=== PATIENT | female | born 1985 | race American Indian/Alaskan Native ===

== ENCOUNTER 2024-10-13 01:46 | Inpatient (IN) | payer OTHER ==
[~2024-10-13] VITALS: Ht 160 cm
[~2024-10-13 01:46] MED LIST: PRENATAL TABLE1 EAC1 PO
[2024-10-13] MEDS ORDERED: ALBUTEROL/IPRATROPIUM 3 ML NEB ONE (01:50)
[2024-10-13] MEDS ORDERED: methylPREDNISolone SOD SUCC 125 MG/2 ML VIAL IV ONE (02:00)
[2024-10-13] MEDS ORDERED: ALBUTEROL/IPRATROPIUM 3 ML NEB INH ONE (02:00)
[2024-10-13 02:03] LABS: PH, VENOUS 7.445 (7.31-7.41)
[2024-10-13 02:05] LABS: RDW 14.6 (10.5-15.0)
[2024-10-13] MEDS ORDERED: VENTOLIN HFA18 GM INH (02:05)
[2024-10-13 02:08] LABS: HEMATOCRIT 39.9 % (35.0-50.0); HEMOGLOBIN 13.1 g/dL (12.0-18.0); MCHC 32.9 g/dl (30-36); PLATELET COUNT 523 K/uL (140-440); RBC 5.05 M/ul (4.3-5.7)
[2024-10-13] MEDS ORDERED: CEFTRIAXONE/SODIUM CHLORIDE 2 GM/100 ML PIGGYBACK IV ONE (02:15)
[2024-10-13 02:28] LABS: EOSINOPHILS, MANUAL DIFF 2; LYMPHOCYTES, MANUAL DIFF 24; MONOCYTES, MANUAL DIFF 6; NEUTROPHILS, MANUAL DIFF 68
[2024-10-13 02:30] LABS: ALBUMIN 2.3 g/dL (3.4-5.0); ALBUMIN/GLOBULIN RATIO 0.37 (1.1-2.4); ANION GAP 12.5 (7-21); BILIRUBIN, TOTAL 0.2 ng/dL (0.2-1.0); BUN/CREATININE RATIO 7.5 (6.0-28.6); CALCIUM 8.7 mg/dL (8.5-10.1); CREATININE, SERUM 0.8 mg/dL (0.55-1.02); POTASSIUM 3.5 mmol/L (3.5-5.1); PROTEIN, TOTAL 8.5 g/dL (6.4-8.2)
[2024-10-13] MEDS ORDERED: ALBUTEROL SULFATE 0.5% 2.5 MG/0.5 ML VIAL INH ONE (02:30)
[2024-10-13] MEDS ORDERED: MAGNESIUM SULFATE 2 GM/50 ML BAG IV ONE (02:30)
[2024-10-13 02:42] LABS: INFLUENZA B NAA NEGATIVE (NEGATIVE); RESPIRATORY SYNCYTIAL VIR NAA NEGATIVE (NEGATIVE)
[2024-10-13 02:52] LABS: LACTIC ACID, BLOOD 0.7 mmol/L (0.4-2.0)
[2024-10-13] MEDS ORDERED: LACTATED RINGER'S 1,000 ML IV ONE (03:45)
[2024-10-13] MEDS ORDERED: AZITHROMYCIN 250 MG TAB PO ONE (03:45)
[2024-10-13 04:03] LABS: BILIRUBIN, URINE NEGATIVE (negative); BLOOD/HGB, URINE NEGATIVE (Negative); KETONE, URINE NEGATIVE (Negative); LEUK ESTERASE, URINE SMALL (negative); NITRITE, URINE NEGATIVE (negative); PH, URINE 6.5 (5-7)
[2024-10-13 04:13] LABS: BACTERIA, URINE 1+ /hpf (negative); CRYSTALS, URINE NONE SEEN (0-1+); EPITHELIAL CELLS, URINE SQUAMOUS 2+ /lpf (0-1+)
[2024-10-13 04:14] LABS: CASTS, URINE HYALINE 1+ \\lpf; COLLECTION TYPE, URINE CLEAN CATCH; REFLEX CULTURE, URINE No (No)
[2024-10-13 04:17] LABS: AMPHETAMINES, URINE POSITIVE (NEGATIVE); BARBITURATES, URINE NEGATIVE (NEGATIVE); BENZODIAZEPINE, URINE NEGATIVE (NEGATIVE); BUPRENORPHINE, URINE NEGATIVE (NEGATIVE); CANNABINOID, URINE POSITIVE (NEGATIVE); COCAINE, URINE NEGATIVE (NEGATIVE); ECSTASY, URINE NEGATIVE (NEGATIVE); FENTANYL, URINE POSITIVE (NEGATIVE); METHADONE, URINE NEGATIVE (NEGATIVE); OPIATES, URINE NEGATIVE (NEGATIVE); OXYCODONE, URINE NEGATIVE (NEGATIVE); PHENCYCLIDINE, URINE NEGATIVE (NEGATIVE)
[2024-10-13] MEDS ORDERED: ondansetron HCL 4 MG/2 ML VIAL IV PRN ×2 (05:45→10:30)
[2024-10-13] MEDS ORDERED: ACETAMINOPHEN 325 MG TAB PO PRN ×2 (05:45→10:30)
[2024-10-13] MEDS ORDERED: ALBUTEROL SULFATE 0.083% 3 ML VIAL INH PRN (06:00)
[2024-10-13 06:21] VITALS: BP 122/84
--- NOTE | 2024-10-13 06:38 | NUR ---
PT ADMITTED TO CCU ROOM 130 FOR ASTHMA/COMM AQUIRED PNEUMONIA. SHE ARRIVES ON 5L/HFNC WITH SATS 93%. SHE IS AWAKE AND ALERT AND ANSWERING QUESTIONS. SHE HAS HAD SOME FREQUENT PRODUCTIVE COUGHING WITH PRODUCTION OF THICK YELLOW SPUTUM. SHE STATES SHE WAS HAVING SOME RIB PAIN BILAT EARLIER BUT IT IS "STARTING TO DOWN A BIT NOW". LUNGS ARE A LITTLE TIGHT EVELYN IN BASES, COARSE SOUNDS HEARD IN UPPER LOBES. SLIGHT WHEEZE HEARD THROUGHOUT. DEEP BREATHS INDUCE COUGHING SPELLS. PT REPORTS FEELING MUCH LESS SOB THAN WHEN SHE CAME IN. SHE IS NOW RESTING IN BED USING HER PHONE.
--- NOTE | 2024-10-13 07:25 | NUR ---
PT USED CALL LIGHT REQUESTING TO USE BSC. ASSISTED PT WITH LINES WHILE SHE AMBULATED TO BSC. PT VOIDED, ASSISTED BACK TO BED IN POSITION OF COMFORT. URINE VOLUME RECORDED, FRESH ICE WATER PROVIDED, CALL LIGHT WITHIN REACH. NO FURTHER NEEDS PER PT.
--- NOTE | 2024-10-13 07:45 | NUR ---
REPORT RECIVED FROM LINING MARKER RN. PATIENT RESTING IN BED AT THIS TIME. PATIENT ON 5L HIGH FLOW NASAL CANULA. PATIENT REPORTS GENRALLY FEELING BETTER.
[2024-10-13] MEDS ORDERED: BUDESONIDE 0.5 MG/2 ML VIAL INH SCH (08:00)
[2024-10-13] MEDS ORDERED: ALBUTEROL/IPRATROPIUM 3 ML NEB INH SCH (08:00)
--- NOTE | 2024-10-13 09:20 | NUR ---
PATIENT AWAKE EATING BREAKFAST AT THIS TIME. PATIENT REPORTS IMPROVEMENT SINCE SHE CAME INTO THE ED. PATIENT RR- EVEN AND UNLABORED. PATIENT COARSE BREATH SOUNDS. PATIENT DENIES PAIN AT THIS TIME. CALL LIGHT IN REACH.
[2024-10-13] MEDS ORDERED: SODIUM CHLORIDE 0.9% 1,000 ML IV SCH (10:30)
--- NOTE | 2024-10-13 10:30 | NUR ---
MD IN TO SEE PATIENT AND TO ADMISSION INFORMATION. PATIENT VERY BRIEF AND RUDE TO MD WITH RESPONSES. EDUCATED PATIENT AGAIN WHY STAFF NEEDED TO DO OUR OWN ASSESSMENT AND NOT JUST DOCUMENT WHAT THE PRIOR MD/RN NOTED. PATIENT AGREEABLE TO CARES. PATIENT EASILY IRRITABLE. PATIENT NOW RESTING BACK AND WATCHING TV. PATIENT RESPONSE AT ONE POINT WAS "WHY ARE THERE 2 OF YOU HERE". PATIENT EDUCATED ON PLAN OF CARE AND STAFF PRESENCE. NO FURTHER QUESTIONS AT THIS TIME.
--- NOTE | 2024-10-13 10:33 | NUR ---
IN PT'S ROOM TO START FLUIDS ORDERED BY DR MARTINS. RT CALLED AND NOTIFIED OF NON EMERGENT EKG. PT RESTING, EYES CLOSED, NO COMPLAINTS, CALL LIGHT WITHIN REACH
[2024-10-13 10:42] VITALS: BP 129/94
--- NOTE | 2024-10-13 10:44 | NUR ---
PT USED CALL LIGHT TO USE BSC. ASSIST PT WITH LINES WHILE SHE AMBULATED TO BSC. PT VOIDED AND RECORDED, ASSISTED BACK TO BED, IN POSITION OF COMFORT, CALL LIGHT WITHIN REACH
[2024-10-13 11:00] VITALS: BP 120/80
[2024-10-13] MEDS ORDERED: DOXYCYCLINE HYCLATE 100 MG CAP PO SCH (11:57)
[2024-10-13] MEDS ORDERED: PHARMACY RENAL DOSE ADJUSTMENT 1 DOSE MISC PO SCH (12:00)
[2024-10-13] MEDS ORDERED: MAGNESIUM CHLORIDE 64 MG TABCR PO ONE (12:00)
[2024-10-13] MEDS ORDERED: POTASSIUM CHLORIDE 10 MEQ TABCR PO ONE (12:00)
[2024-10-13 12:34] VITALS: BP 148/98
--- NOTE | 2024-10-13 12:37 | NUR ---
THIS RN IN TO ASSIST PATIENT WITH MEDICATIONS AND SET UP FOR LUNCH. PATIENT TOELRATED WELL. UPON RN ENTERING ROOM PATIENT WAS USING AQAPELLA. PATIENT REPORTS SOME PAIN THROUGHT HER UPPER TORSO INCREASED WITH COUGHING. PATIENT REQUESTS LIGHTS TO BE TURNED DOWN.
--- NOTE | 2024-10-13 14:23 | NUR ---
medications reconciled
--- NOTE | 2024-10-13 14:30 | NUR ---
PATIENT SITTIN UP IN BED WATCHING TV. ENCOURAGED PATIENT TO USE AQAPELLA. PATIENT STATE " WILL". RT IN TO DO NEBS AND WORK WITH PATIENT AND CONTINUE TO TITRATE OXYGEN NEEDS DOWN TOLERATED.
--- NOTE | 2024-10-13 16:17 | NUR ---
PT RESTING, EYES CLOSED. EVEN UNLABORED RESPIRATIONS, BED IN LOWEST POSITION AND LOCKED, CALL LIGHT WITHIN REACH
--- NOTE | 2024-10-13 16:37 | NUR ---
PTS SIGNIFICANT OTHER VISTING PATIENT. PT'S COUSIN CALLED, Clark HECTOR, REQUESTING UPDATE, PER PT OKAY TO GIVE INFORMATION TO, COUSIN UPDATED ON POC. PT'S SIG OTHER ASKING WHY SHE IS STILL HERE, PNA PROCESS AND PTS OXYGEN REQUIREMENTS EXPLAIN TO PT AND SIGNIFICANT OTHER, NO FURTHER QUESTIONS OR NEEDS. ENCOURAGING BREATHING EXERCISES, CALL LIGHT WITHIN REACH
[2024-10-13 16:39] VITALS: BP 116/76
--- NOTE | 2024-10-13 18:52 | NUR ---
ROGER RN HAS BEEN IN TO TAKE CARE OF PATIENT THE PAST FEW HOURS. PATIENT HAS HAD SEVERAL VISITORS IN TO SEE HER. PATIENT CURRENTLY ON 3L NC DOWN FROM 5L THIS AM. PATIENT REPORTS SHE IS WORKIGN ON AQAPELLA EVERY HOUR DIRECTED. PATIENT REPORTS FEELING BETTER THAN SHE WAS PRIOR IN THE DAY.
--- NOTE | 2024-10-13 19:40 | NUR ---
REPORT RECEIVED FORM ELVIRA POOLE. PT AWAKE IN BED, WATCHING TV. RT HAD TURNED DOWN O2 TO 2L, SPO2 DOWN TO 88-89%. HIGH FLOW CANNULA TURNED UP TO 4L/MIN. PT DENIES NEEDS AT THIS TIME.
--- NOTE | 2024-10-13 20:15 | NUR ---
IN TO DO ASSESSMENT AND CHECK ON PT. SHE CONT TO REST IN BED WATCHING TV, DENIES NEEDS, DENIES PAIN. FEELING MUCH LESS SOB THAN YESTERDAY. LUNGS HAVE SOME COURSE SOUNDS THROUGHOUT, PT HAS OCC PRODUCTIVE COUGH. JELLO AND JUICE GIVEN PER REQUEST. O2 CONT AT 4L ON HFNC WITH SPO2 95% AND RR 95%.
[2024-10-13] MEDS ORDERED: methylPREDNISolone SOD SUCC 125 MG/2 ML VIAL IV SCH (21:00)
[2024-10-13] MEDS ORDERED: CEFTRIAXONE/SODIUM CHLORIDE 2 GM/100 ML PIGGYBACK IV SCH (21:00)
--- NOTE | 2024-10-13 22:00 | NUR ---
PT CONT TO REST, IVF INFUSING, ON 4L/HFNC.
--- NOTE | 2024-10-13 23:02 | EKG ---
[facility] [address] [place], [place] [address] Signed Normal sinus rhythm Possible Inferior infarct , age undetermined T wave abnormality, consider anterior ischemia Prolonged QT Abnormal ECG No previous ECGs available Confirmed by Anselmo Lima MD () on 10/13/2024 11:02:23 PM Electronically Signed By: ANSELMO LIMA MD 10/13/242301 PATIENT NAME: MICHELLE MAZARIEGOS Electrocardiogram DATE OF : 89 PHYSICIAN: ANSELMO LIMA MD REPORT #: [id number] REPORT IS CONFIDENTIAL AND NOT TO BE RELEASED WITHOUT AUTHORIZATION
--- NOTE | 2024-10-14 00:38 | NUR ---
IN TO DO ASSESSMENT, SNACKS PROVIDED PER REQUEST. O2 REMAINS AT 4L/NC ON HIGHFLOW CANNULA. PT DID GET SHORT OF BREATH WITH GETTING UP TO BSC TO VOID.
--- NOTE | 2024-10-14 02:02 | NUR ---
PT RESTING, SPO2 95% ON 4L/HFNC, RR 18 AND HR 90'S
[2024-10-14 05:27] LABS: HEMATOCRIT 36.2 % (35.0-50.0); HEMOGLOBIN 11.5 g/dL (12.0-18.0); MCHC 31.7 g/dl (30-36); MCV 78.9 fl (81-99); PLATELET COUNT 522 K/uL (140-440); RBC 4.59 M/ul (4.3-5.7); RDW 15.1 (10.5-15.0)
[2024-10-14 05:35] VITALS: BP 124/81; BP 124/87
[2024-10-14] MEDS ORDERED: LORazepam 2 MG/ML VIAL ONE (05:38)
--- NOTE | 2024-10-14 05:50 | NUR ---
NOISE HEARD FROM PTS ROOM, IN TO CHECK ON HER. SHE IS UPSET AND ANGRY, STATES "I AM SO UNCOMFORTABLE, I CANT GET COMFORTABLE WITH ALL THESE WIRES AND THIS THING ON MY FACE," ATTEMPTED TO ASSIST PT WITH GETTING COMFORTABLE AND SHE CONT TO SHOW INCREASING ANXIETY AND AGITATION AND THEN STARTS CRYING AND STATES "I'M PROBABLY STARTING TO GO THROUGH WITHDRAWAL." CALL TO DR LIMA WHO GAVE ORDER FOR PRN ATIVAN. 1MG IV ATIVAN GIVEN. PT HAD CALMED DOWN PRIOR TO ATIVAN, WAS STILL CRYING IN HER BED. COMMUNICATED TO PT TO PLEASE LET STAFF KNOW HER NEEDS AND SYMPTOMS SO WE CAN HELP HER THROUGH WITHDRAWAL AND SHE AGREES. BED ALARM ON.
[2024-10-14 05:59] LABS: ALBUMIN/GLOBULIN RATIO 0.36 (1.1-2.4); ANION GAP 13.6 (7-21); BILIRUBIN, TOTAL 0.1 ng/dL (0.2-1.0); BUN/CREATININE RATIO 14.51 (6.0-28.6); CREATININE, SERUM 0.62 mg/dL (0.55-1.02); MAGNESIUM 2.1 mg/dL (1.8-2.4); POTASSIUM 4.6 mmol/L (3.5-5.1); PROTEIN, TOTAL 7.6 g/dL (6.4-8.2)
[2024-10-14] MEDS ORDERED: LORazepam 2 MG/ML VIAL IV PRN ×2 (06:00→10:30)
[2024-10-14 06:17] LABS: LYMPHOCYTES, MANUAL DIFF 5; MONOCYTES, MANUAL DIFF 2; NEUTROPHILS, MANUAL DIFF 93
--- NOTE | 2024-10-14 06:31 | NUR ---
SHORTLY AFTER ATIVAN WAS GIVEN PT RELAXED AND WENT TO SLEEP, RESP EVEN AND UNLABORED, O2 AT 3L/HFNC WITH SPO2 94%. BED ALARM ON.
--- NOTE | 2024-10-14 07:57 | NUR ---
REPORT RECIEVED FROM VIRGILIO NUNN. PT DROWSY BUT ANSWERS QUESTIONS. RT IN ROOM EKG AND NEB TREATMENT. PT UP TO BSC. DECLINES BLINDS OPEN OR BREAKFAST ATT.
[2024-10-14] MEDS ORDERED: ENOXAPARIN SODIUM 40 MG/0.4 ML SYR SUB-Q SCH (09:00)
--- NOTE | 2024-10-14 09:43 | NUR ---
PT LAYING IN BED ASLEEP AFTER GETTING UP TO BSC. PT TURNED UP TO 3L DUE TO MOUTH BREATHING WITH NC BUT DOES NOT TOLERATE MASKS OF ANY SORT.
--- NOTE | 2024-10-14 09:59 | NUR ---
PT HAD UNMEASURED VOID IN BSC DUE TO TOILET PAPER SOAKING IT UP. ADMINISNTERED MEDS. PT MOANING AND THRASHING A BIT IN BED. COUGH PRESENT, NONPRODUCTIVE.
[2024-10-14 10:05] VITALS: BP 118/74
--- NOTE | 2024-10-14 10:33 | NUR ---
PT WOKE AND STARTED YELLING "HELP ME". ASKED FOR SOMETHING FOR WITHDRAWL SYMPTOMS. CALLED AND HE ORDERED ATIVAN Q1P .
--- NOTE | 2024-10-14 11:02 | NUR ---
PT SLEEPING ON BACK. RR 16. O2 IN PLACE.
--- NOTE | 2024-10-14 11:38 | NUR ---
REPORT RECEIVED AND CHART REVIEWED. PT TO MED-SURG RESTING EYES CLOSED [address] FRESH H20 AND NEEDED ITEMS AT BEDSIDE ALARM IS SET
--- NOTE | 2024-10-14 12:20 | NUR ---
PT UP TO TOILET SETS OFF ALARM. LINES MANAGED THEN PT RETURNS TO BED RESTING EYES CLOSED MOANING OFF AND ON APPEARS SOMEWHAT RESTLESS
[2024-10-14 13:19] VITALS: BP 132/70
--- NOTE | 2024-10-14 13:30 | NUR ---
PT RESTING EYES CLOSED [address] CALL LIGHT ON TABLE BSC SET FOR USE. PT APPEARS RESTFUL BREATHING EVEN AND UNLABORED
--- NOTE | 2024-10-14 13:58 | NUR ---
VISITED DURING SPIRITUAL CARE ROUNDS. PT APPEARED TO BE SLEEPING. DID NOT DISTURB. PROVIDED PRAYER.
--- NOTE | 2024-10-14 14:23 | NUR ---
PT RESTING SOUNDLY BREATHING EVEN AND UNLABORED. PT HAS A DRY HACKING COUGH NO PRODUCTION AT THIS TIME. [address]
--- NOTE | 2024-10-14 14:33 | NUR ---
UR CLINICAL REVIEW: [facility] INPT CRITERIA FOR PNEUMONIA BASIC DMAP INPT 10/13/24 @ 1021 ORDER MATCHES REG NO AUTH REQUIRED PER MEDICAID GUIDELINES DISCHARGE PENDING FURTHER CASE MANAGEMENT EVALUATION 10/16/24
--- NOTE | 2024-10-14 14:49 | NUR ---
PT AWAKENS TO VOICE DENIES OFFER OF FOOD ITEMS STATES SHE'S JUST TIRED, MIGHT EAT SOMETHING LATER.
[2024-10-14 14:53] VITALS: BP 132/70
--- NOTE | 2024-10-14 14:56 | NUR ---
SPOT CHECKING SATS PT AT 96% 02 LEFT ON AT 2 LPM
--- NOTE | 2024-10-14 16:00 | NUR ---
PT UP TO BSC THEN RETURNS TO BED. REFUSES OFFER OF FOOD OR DRINK. DENIES DISCOMFORTS OR NEEDS STATES SHE JUST WANTS TO SLEEP.
--- NOTE | 2024-10-14 17:23 | NUR ---
PT WAKES UP COUGHING AND HACKING PRODUCES SOME THICK YELLOW SPUTUM. OFFERED FOOD AND DRINK SHE REFUSES. PT ASKED IF SHE WANTS TO WAKE UP AND EAT SHE REPLIES NO. PT RESP RATE IS INCREASED MOANS A BIT. ASKED PT IF SHE WANTS TO CONTINUE TO SLEEP FOR AWHILE SHE AGREES. CONTINUES TO BE RESTLESS ATIVAN ADMINISTERED PT RESTING QUIETLY NOW.
[2024-10-14 18:10] VITALS: BP 119/80
--- NOTE | 2024-10-14 18:20 | NUR ---
PT RESTING SOUNDLY AT THIS TIME.
--- NOTE | 2024-10-14 19:15 | NUR ---
RECIEVED REPORT FROM VIRGILIO KENNEDY. PATIENT RESTING IN BED WITH EYES CLOSED. RESPIRATIONS EVEN AND UNLABORED. 1.5L VIA NC IN PLACE. NO NEEDS IDENTIFIED AT THIS TIME. CALL LIGHT IN REACH.
--- NOTE | 2024-10-14 21:01 | NUR ---
IN ROOM TO ADMINISTER MEDICATIONS, SEE E-MAR. VITALS ASSESSED. ASSESSMENT COMPLETED. PATIENT INITIALLY RESTING IN BED WITH EYES CLOSED. UPON WAKING FOR ASSESSMENT, PATIENT BECAME RESTLESS IN BED AND MILDLY AGITATED. PRN MEDICATION ADMINISTERED, SEE E-MAR. PATIENT DENIES ADDITIONAL NEEDS AT THIS TIME. 1.5L VIA NC IN PLACE. BED ALARM ACTIVE. CALL LIGHT IN REACH.
[2024-10-14 21:07] VITALS: BP 125/64
--- NOTE | 2024-10-14 22:35 | NUR ---
IN ROOM RESPONDING TO PUMP ALARM. PATIENT RESTLESS IN BED, MILDLY AGITATED. PATIENT REQUESTS MEDICATION FOR THE RESTLESSNESS. PRN MEDICATION ADMINISTERED, SEE E-MAR. PATIENT ABLE TO RESUME RESTING ON BACK WITH EYES CLOSED. NO NEEDS IDENTIFIED AT THIS TIME. BED ALARM ACTIVE. CALL LIGHT IN REACH.
--- NOTE | 2024-10-15 00:45 | NUR ---
IN ROOM TO ROUND ON PATIENT. PATIENT RESTING ON BACK WITH EYES CLOSED AND LEGS BENT WITH FEET ON THE BED. NO NEEDS IDENTIFIED AT THIS TIME. BED ALARM ACTIVE. CALL LIGHT IN REACH. 1.5L VIA NC IN PLACE.
[2024-10-15 01:01] VITALS: BP 125/64
--- NOTE | 2024-10-15 02:01 | NUR ---
PT IS VERY AGITTATED, RESTLESS IN BED, THROWING BEDDING OFF AND ON. PT JUMPS UP TO BSC, BED ALARMING. RN AND CONSUMER ADVOCATE IN ROOM. PT ANGRY THAT "I TOLD ELKIN GUYS I WAS GOING TO WITHDRAWL AND YOU AIN'T FUCKING DOING ANYTHING FOR IT!" EDUCATED PT THAT SHE HAS BEEN GIVEN ATIVAN FOR HER SYMPTOMS. SHE STATES "HOW AM I SUPPOSED TO FUCKIN' LAY IN HERE AND DO NOTHING? CAN'T YOU GIVE ME SOMETHING TO KNOCK ME OUT?" RN EDUCATES PT OF THE RISKS OF DECREASED RESP RATE AND RESP ARREST IF PT IS GIVEN TOO MANY SEDATIVES. PT NOW RESTING BACK IN BED AFTER EDUCATION ABOUT USING THE CALL LIGHT. BSC PLACED IMMEDIATELY NEXT TO THE BED, BED ALARM ON, CALL LIGHT IN REACH, DOOR AND CURTAIN OPEN.
--- NOTE | 2024-10-15 02:02 | NUR ---
CERTIFIED PEDORTHOTIST HAS RESPONDED TO THE BED ALARM 3 TIMES SINCE START OF SHIFT. PT HAS BEEN GETTING UP TO THE BATHROOM AND IS TANGLED IN IV LINE AND O2 LINE. WHEN REMINDED TO PUSH THE CALL LIGHT AND WAIT FOR STAFF TO HELP, PT BECOMES AGITATED AND ARGUMENATIVE.
--- NOTE | 2024-10-15 02:55 | NUR ---
CONTACTED PROVIDER REGARDING PATIENT'S AGITATED BEHAVIOR, RESTLESSNESS, AND C/O RESTLESS LEGS. PROVIDER NOTIFIED OF PATIENT'S COWS SCORE. PROVIDER TO PUT IN NEW ORDERS FOR PATIENT.
--- NOTE | 2024-10-15 03:01 | NUR ---
PT VERY AGITTATED, SCREAMING, JUMPING OUT OF BED, THROWING BEDDING AROUND ROOM, CUSSING. ANOTHER DOSE OF ATIVAN PROVIDED. PT COMPLAINS OF RESTLESS LEGS. PT LAYS IN BED, SCREAMING. PRIMARY RN NOTIFIED AND WILL CALL .
[2024-10-15] MEDS ORDERED: diazePAM 10 MG/2 ML SYR IV PRN (03:30)
[2024-10-15] MEDS ORDERED: GABAPENTIN 300 MG CAP PO ONE (03:30)
--- NOTE | 2024-10-15 03:35 | NUR ---
IN ROOM TO ADMINSTER MEDICATIONS, SEE E-MAR. PATIENT TANGLED IN MULTIPLE LINES. PATIENT HAD REMOVED CPOX AND NASAL CANNULA. CPOX REAPPLIED. 1.5L VIA NC REAPPLIED. DESPITE MEDICATION, PATIENT REMAINS RESTLESS AND AGITATED, MOVING FROM ONE END OF THE BED TO THE OTHER, AND SHOUTING REGARDING HER INABILITY TO GET COMFORTABLE. NO NEEDS IDENTIFIED AT THIS TIME. CALL LIGHT IN REACH. BED ALARM ACTIVE.
--- NOTE | 2024-10-15 03:52 | NUR ---
SUPPLY CHAIN ASSOCIATE RESPONDED TO BED ALARM TO FIND PT WAS ALREADY ON THE BSC. AFTER PT RETURNED TO BED, SUPPLY CHAIN ASSOCIATE ASK PT TO USE THE CALL LIGHT NEXT TIME. PT WAS UNWILLING TO AGREE TO USE THE CALL LIGHT.
[2024-10-15 04:49] VITALS: BP 125/89
[2024-10-15 04:58] VITALS: BP 125/89
--- NOTE | 2024-10-15 04:59 | NUR ---
PATIENT COULD BE HEARD AT THE RN STATION YELLING OUT. THIS RN INTO ROOM TO ASSES PATIENT. PATIENT IS ROLLING AROUND IN BED. PATIENT IS NOTED TO BE HITTING THE EDGE OF THE BED WITH HER HAND. WITHDRAWL SCALE COMPLETED AND NOTED TO BE 13. PATIENT GIVEN PRN MEDICATION FOR WITHDRAWL PER ORDER. PATIENTS VITALS TAKEN AND RECORDED. INTAKE AND OUTPUT RECORDED. NO FURTHER NEEDS NOTED. CALL LIGHT IN REACH.
--- NOTE | 2024-10-15 05:13 | NUR ---
PT YELLING, STATING "I CAN'T GET COMFORTABLE!" TOSSING HER BED SHEETS AROUND, RESTLESS IN BED. PRN TYLENOL PROVIDED FOR 6/10 GENERALIZED PAIN. CALL LIGHT IN REACH, RAILS UP, BED ALARM ON.
[2024-10-15 05:58] LABS: BASOPHILS 0.4 % (0-2); HEMATOCRIT 34.2 % (35.0-50.0); HEMOGLOBIN 11.6 g/dL (12.0-18.0); LYMPHOCYTES 5.7 % (24-44); MCH 26.2 (27-36); MCHC 33.9 g/dl (30-36); MCV 77.3 fl (81-99); MONOCYTES 1.1 % (0-12); NEUTROPHILS 92.8 % (39-80); PLATELET COUNT 537 K/uL (140-440); RBC 4.42 M/ul (4.3-5.7); RDW 14.8 (10.5-15.0)
[2024-10-15 06:08] LABS: BUN/CREATININE RATIO 13.55 (6.0-28.6); CALCIUM 8.6 mg/dL (8.5-10.1); CREATININE, SERUM 0.59 mg/dL (0.55-1.02)
--- NOTE | 2024-10-15 06:33 | NUR ---
IN ROOM RESPONDING TO PATIENT YELLING "HELP". PATIENT CPOX CAUGHT BEHIND HER HEAD. PATIENT UNTANGLED. PATIENT STATED "IM COLD". WARM BLANKETS PROVIDED. NO OTHER NEEDS IDENTIFIED AT THIS TIME. PATIENT AGIGTATED AND RESTLESS IN BED. PRN MEDICATION ADMINISTERED, SEE E-MAR. CALL LIGHT IN REACH. BED ALARM ACTIVE.
--- NOTE | 2024-10-15 07:13 | NUR ---
VERBAL REPORT RECEIVED FROM VIRGILIO RYAN AND VIRGILIO KWOK. PT RESTS IN BED CALM WITH EYES CLOSED, VIRGILIO ONOFRE IN ROOM.
--- NOTE | 2024-10-15 07:30 | NUR ---
PT USES CALL LIGHT. UPON ENTERING ROOM PT IS RESTLESS IN BED THRASHING ABOUT AND PULLING AT HER LINES. PT STATES, "I CAN'T SLEEP LIKE THIS, GET THEM OFF, I CAN'T, I'M NOT COMFORTABLE. I WANT TO GO HOME." PT THROWS NC OFF. DISCUSSED WITH PT POC, SAFETY CONCERNS AND POSITIVE USES OF THE IV AND OXYGEN. PT CALMS DOWN, PT REMAINS ON RA. AGREEABLE TO WAIT AND DISCUSS HER NEEDS WITH DR. LIMA. PT RESTS IN BED, CALM AT THIS TIME.
--- NOTE | 2024-10-15 07:52 | NUR ---
BED ALARM SIGNALS. UPON ENTERING ROOM NOTED PT HAS JUMPED THE BED RAIL AND PUT HER SELF ON THE BSC. EDUCATED PT ON USE OF CALL LIGHT. PT BACK TO BED, BED RAILS X3 UP. PT GAIT IS STABLE, IV LINE IN USE. ECOURAGED PT TO USE BSC INDEPENDENTLY AND TO USE CALL LIGHT FOR ANY OTHER NEEDS. PT REPORTS SHE IS COLD, WARM PACK AND WARM BLANKET PROVIDED. PT RESTS CALMLY IN BED. RT IN ROOM, PT SATS 97% ON ROOM. DISCUSSED BREATHING TREATMENT WITH PT, PT TOLERATES TREATMENT WELL. PT RESTS IN BED WITH EYES CLOSED.
[2024-10-15] MEDS ORDERED: DOXYCYCLINE HY100 MG PO (08:31)
[2024-10-15] MEDS ORDERED: CEFDINIR300 MG PO (08:32)
[2024-10-15] MEDS ORDERED: PREDNISONE20 MG PO (08:32)
--- NOTE | 2024-10-15 08:34 | NUR ---
PATIENT IS 94% ON ROOM AIR. DR. LIMA IN TO SEE PATIENT PATIENT INSISTS ON LEAVING THE HOSPITAL TODAY. X2 LEFT ARM IV'S REMOVED WITH CATHETERS INTACT.
[2024-10-15 08:42] VITALS: BP 144/85
--- NOTE | 2024-10-15 08:49 | NUR ---
PT RESTS IN BED, ATTEMPTED TO DISCUSS DISCHARGE INSTRUCTIONS WITH PT, PT IS DROWSY, HARDLY OPENS EYES, DOES NOT ENGAGE WITH EDUCATION. STATES HER RIDE IS COMING, MAYBE IN 30 MINUTES, SHE WILL NOT SIGN DISCHARGE INSTRUCTIONS AT THIS TIME. DISCHARGE INFORMATION AND RX GIVEN TO PT. PT RESTS IN BED WITH EYES CLOSED, VSS. PT FULLY DRESSED AND BELONGINGS GATHERED.
--- NOTE | 2024-10-15 08:58 | NUR ---
PT'S "BROTHER" ARRIVES. PT UP IN ROOM GATHERS BELONGNINGS. DISCUSSED DISCHARGE INSTRUCTIONS WITH PT AND "BROTHER." PT SIGNS DISCHARGE INSTRUCTIONS. PT LEAVES UNIT IN WHEELCHAIR, ESCORTED BY THIS RN TO PRIVATE CAR DRIVEN BY BROTHER.
--- NOTE | 2024-10-15 22:47 | EKG ---
[facility] [address] [facility] [place] [address] Signed Normal sinus rhythm Normal ECG When compared with ECG of 13-OCT-2024 10:48, Borderline criteria for Inferior infarct are no longer present T wave inversion no longer evident in Anterior leads QT has shortened Confirmed by Anselmo Lima MD () on 10/15/2024 10:47:21 PM Electronically Signed By: ANSELMO LIMA MD 10/15/24 2247 PATIENT NAME: NERISSA MAZARIEGOSWADE Lemus Electrocardiogram DATE OF : 89 PHYSICIAN: ANSELMO LIMA MD REPORT #: [id number] REPORT IS CONFIDENTIAL AND NOT TO BE RELEASED WITHOUT AUTHORIZATION
== END 2024-10-15 08:58 | disposition home or self-care (01) | DRG 871 ==
LOC: ED 01:46 → CCU 01:49 → MS 10-14 11:13
PROVIDERS: Internal Medicine; ADMIT Family Medicine; ATTEND Family Medicine
DX: A41.9 Sepsis, unspecified organism (principal); J18.9 Pneumonia, unspecified organism; J96.01 Acute respiratory failure with hypoxia; J45.901 Unspecified asthma with (acute) exacerbation; F15.13 Other stimulant abuse with withdrawal; R94.31 Abnormal electrocardiogram [ECG] [EKG]; F17.210 Nicotine dependence, cigarettes, uncomplicated; F12.10 Cannabis abuse, uncomplicated; Z71.41 Alcohol abuse counseling and surveillance of alcoholic; Z90.49 Acquired absence of other specified parts of digestive tract; Z79.899 Other long term (current) drug therapy
CPT/HCPCS: 36415; 71045; 71260; 80048; 80053; 80307; 81001; 82803; 83605; 83735; 83880; 84100; 84484; 84703; 85025; 85379; 87040; 87070; 87205; 87502; 93005; 93010; 94640; 94644; 94667; 94668; 94760; 94762; 96368; 99285-25; A9270; G0378; J0696; J1650; J2060; J2919; J3360; J3475; J7030; J7121; Q9967; U0002